=== PATIENT | male | born 1995 | race Caucasian/White ===

== ENCOUNTER 2017-04-01 21:22 | Emergency (ER) | payer SELFPAY ==
[2017-04-01] MEDS ORDERED: Sodium Chloride 0.9% 1000 ML 1,000 ML IV STA (21:38)
[2017-04-01] MEDS ORDERED: TORAdol 30 mg Injection IV ONE (21:38)
--- NOTE | 2017-04-01 21:42 | ERPHSYRPT ---
- History of Present Illness Time Seen by Provider: 04/01/17 21:36 Source: patient Exam Limitations: no limitations Patient Subjective Stated Complaint: pt states he has a fever starting today and has had a migraine for the past 3 days. states he hasnt felt like doing anything for the past several days. Triage Nursing Assessment: pt alert and oriented, asnwers qeustions approp. pt ambulatory with steady gaitn oted. respirations nonlabored with lungs cta. pupils equal and reactive, bilat upper and lower ext strength wnl Physician History: 22-year-old white male arrives with complaint of general malaise states he's had a migraine states she's had a headache no nausea no vomiting. Symptoms for 3 days. Past medical history negative. Past surgical history toe surgery. Timing/Duration: day(s) Severity: moderate Modifying Factors: Improves With: nothing Associated Symptoms: fever, malaise, other (patient states she just hasn't felt like doing much), No nausea, No vomiting, No abdominal pain, No shortness of breath, No heartburn, No diaphoresis, No cough, No chills, No chest pain, No headaches, No loss of appetite, No rash, No syncope, No seizure, No weakness Allergies/Adverse Reactions: avacado Allergy (Mild, Uncoded 04/01/17 21:35) Home Medications: No Home Meds 1 [facility] UD 04/01/17 [History] Hx Tetanus, Diphtheria Vaccination/Date Given: Yes Hx Influenza Vaccination/Date Given: No Hx Pneumococcal Vaccination/Date Given: No Immunizations Up to Date: Yes - Review of Systems Constitutional: No Symptoms, Fever, Other (just hasn't felt like doing much), No Chills, No Fatigue, No Lethargy, No Malaise, No Night Sweats, No Weakness, No Weight Loss Eyes: No Symptoms Ears, Nose, & Throat: No Symptoms Respiratory: No Cough, No Dyspnea Cardiac: No Chest Pain, No Edema, No Syncope Abdominal/Gastrointestinal: No Abdominal Pain, No Nausea, No Vomiting, No Diarrhea Genitourinary Symptoms: No Dysuria Musculoskeletal: No Arthralgias, No Back Pain, No Neck Pain, No Deformity, No Fall, No Injury, No Joint Redness, No Joint Pain, No Joint Swelling, No Myalgias Skin: No Rash Neurological: Headache, No Dizziness, No Focal Weakness, No Gait Changes, No Irritability, No Lethargy, No Paralysis, No Parasthesia, No Seizure, No Sensory Changes, No Speech Changes, No Tics, No Tremors, No Vertigo Psychological: No Symptoms Endocrine: No Symptoms All Other Systems: Reviewed and Negative - Past Medical History Pertinent Past Medical History: No Cardiac History: No Pertinent History Respiratory History: No Pertinent History Musculoskeletal History: No Pertinent History GI Medical History: No Pertinent History History: No Pertinent History Psycho-Social History: No Pertinent History Male Reproductive Disorders: No Pertinent History - Past Surgical History Past Surgical History: No Other Surgical History: procedure to great toes under local - Social History Smoking Status: Former smoker Exposure to second hand smoke: Yes Drug Use: none Patient Lives Alone: No - Nursing Vital Signs Nursing Vital Signs: Initial Vital Signs Temperature 100.0 F Temperature Source Oral Pulse Rate 88 Respiratory Rate 18 Blood Pressure [Right Arm] 125/75 Pain Intensity 6 - Physical Exam General Appearance: no apparent distress (not really impressed with this.) Eye Exam: PERRL/EOMI, eyes nml inspection Ears, Nose, Throat Exam: normal ENT inspection, TMs normal, pharynx normal, moist mucous membranes Neck Exam: normal inspection, non-tender, supple, full range of motion Respiratory Exam: normal breath sounds, lungs clear, No respiratory distress Cardiovascular Exam: regular rate/rhythm, normal heart sounds, normal peripheral pulses Gastrointestinal/Abdomen Exam: soft, normal bowel sounds, No tenderness, No mass Back Exam: normal inspection, normal range of motion, No CVA tenderness, No vertebral tenderness Extremity Exam: normal inspection, normal range of motion, pelvis stable Neurologic Exam: alert, oriented x 3, cooperative, normal mood/affect, nml cerebellar function, nml station & gait, sensation nml, No motor deficits Skin Exam: normal color (we'll review was completed reviewed), warm, dry, No rash Lymphatic Exam: No adenopathy SpO2 Interpretation: normal (100PRIMARY DISC AT @%) SpO2: 100 Oxygen Delivery: Room Air Ordered Tests: Active Orders 24 hr Category Date Time Status IV Insertion STAT Care 04/01/17 21:38 Active CBC W DIFF Stat Lab 04/01/17 21:38 Ordered CMP Stat Lab 04/01/17 21:38 Ordered Medication Summary Generic Name Dose Route Start Last Admin Trade Name Freq PRN Reason Stop Dose Admin Sodium Chloride 1,000 mls @ 999 mls/hr 04/01/17 21:38 Sodium Chloride 0.9% 1000 Ml IV 04/01/17 22:38 .[id number] STA Discontinued Medications Generic Name Dose Route Start Last Admin Trade Name Toby PRN Reason Stop Dose Admin Ketorolac Tromethamine 30 mg 04/01/17 21:38 Toradol 30 Mg Injection IV 04/01/17 21:39 STAT ONE - Progress Progress: improved Progress Note: 04/01/17 21:48 22-year-old white male arrives with complaint of headache for 3 days states she' s had a fever at home he has no vomiting no diarrhea no other complaints patient with no focal deficits. Patient's physical examination is unremarkable. I had offered to give the patient IV fluids obtain CBC CMP and give patient Toradol for pain. Patient refuses IVs he refuses lab work states he doesn't do needles. Patient really not in acute distress Will discharge patient. Patient to return home rest plenty of fluids. Tylenol every 4 hours as needed for pain Motrin every 6 hours with food as needed for pain follow-up with his family doctor. - Departure Time of Disposition: 21:49 Departure Disposition: Home Clinical Impression: Headache Qualifiers: Headache type: unspecified Headache chronicity pattern: unspecified pattern Intractability: not intractable Qualified Code(s): R51 - Headache Condition: Fair Critical Care Time: No Additional Instructions: Return home. Plenty of fluids Tylenol every 4 hours as needed for temperature greater than 100.5 or pain. Motrin every 6 hours as needed for temperature greater than 100.5 or pain. Follow-up with your family doctor. Return for acute distress or for severe symptoms. You can offer him
[2017-04-01] MEDS ORDERED: TORAdol 30 mg Injection ONE (21:45)
[2017-04-01] MEDS ORDERED: Sodium Chloride 0.9% 1000 ML 0 ML ONE (21:45)
[2017-04-01] MEDS ORDERED: TYLENOL 325 MG PO ONE (21:51)
[2017-04-01] MEDS ORDERED: TYLENOL 325 MG ONE (21:56)
[2017-04-01 22:14] VITALS: BP 126/77; PULSE 86; O2SAT 99
== END 2017-04-01 22:13 | disposition home or self-care (01) ==
LOC: ED 21:22
DX: R51 Headache (principal)
CPT/HCPCS: 99283; J1885; A9270-GY